=== PATIENT | female | born 2000 | race Caucasian/White ===

== ENCOUNTER 2022-08-17 08:39 | Emergency (ER) | payer OTHER, SELFPAY ==
[2022-08-17 08:41] VITALS: BP 154/108; PULSE 113; RESP 20; TEMP 36.7; O2SAT 97; BMI 43.4
--- NOTE | 2022-08-17 09:06 | EXP.UTC ---
Discharge Plan Disposition Patient Disposition: Home, Self-Care Condition: Good Prescriptions Prescriptions: New ondansetron 4 mg Tablet,Disintegrating 4 mg PO Q8H PRN (Reason: Nausea) Qty: 12 0RF No Action dextroamphetamine-amphetamine 20 mg tablet 20 mg PO DAILY escitalopram oxalate 20 mg tablet 20 mg PO DAILY Referrals Follow up/Referrals: Provider,Referral, MD [Primary Care Provider] - See instructions Activity Restrictions/Add. Instructions Additional Instructions/Restrictions: Drink plenty of fluids. Take tylenol for pain or fever. Take the zofran as directed for nausea. Follow up with your regular doctor. GO TO THE ER FOR ANY WORSENING SYMPTOMS Clinical Impressions Clinical Impression: Gastroenteritis Stand Alone Forms Stand Alone Forms: Work/School Release Instructions Patient Instructions: DI for Viral Gastroenteritis -- Adult, Ondansetron Discharge ED Provider: Ranulfo Turner [facility] [place] HPI General Stated complaint: vomiting, diarrhea, dizzy, weakness Mode of Arrival: Ambulatory Source of Information: Patient Limitations: No Limitations Time Seen by Provider: 08/17/22 09:06 Description of Symptoms (Recalled from Triage Doc. by RN): Pt reports vomiting and diarrhea that began approx 0130 this morning. Pt reports body aches and feels weak. History of Present Illness Provider Complaint: she reports that she has vomited multiple times and had diarrhea multiple times since 0130 am today. She denies abdominal pain. Related Data Home Medications Medication Instructions Recorded Confirmed dextroamphetamine-amphetamine 20 20 mg PO DAILY add 08/17/22 08/17/22 mg tablet escitalopram oxalate 20 mg tablet 20 mg PO DAILY Anxiety 08/17/22 08/17/22 Previous Rx's Medication Instructions Recorded ondansetron 4 mg disintegrating 4 mg PO Q8H PRN Nausea #12 tabs 08/17/22 tablet Allergies Allergy/AdvReac Type Severity Reaction Status Date / Time Penicillins Allergy Verified 08/17/22 09:03 [facility] Disclaimer: The information contained in this section may have been updated after the patient was seen, as this information can be updated by other users. Medical History ADD (attention deficit disorder) Anxiety Hypertension Migraine Surgical History Previous section Social History Smoking Status: Never smoker alcohol intake: current current occupational status: unemployed Travel in the last 8 weeks: None ROS Obtained: Yes All systems reviewed & no additional complaints except as documented Constitutional Constitutional: Denies chills, Denies fever(s) and Reports poor appetite ENT Ears, Nose, Mouth, and Throat: Denies dizziness and Denies sore throat Cardiovascular Cardiovascular: Denies dyspnea Respiratory Respiratory: Denies chest congestion, Denies cough and Denies dyspnea Gastrointestinal Gastrointestingal: Reports as per HPI; Denies abdominal pain Genitourinary Female Genitourinary: Denies difficulty voiding, Denies dysuria, Denies hematuria, Denies urinary frequency, Denies urinary incontinence, Denies urinary hesitancy and Denies urinary urgency Musculoskeletal Musculoskeletal: Denies arthralgias Integumentary/Breasts Skin/Breast: Denies rash Neurologic Neurologic: Denies dizziness Physical Exam General General appearance: alert and in no apparent distress Head Head exam: atraumatic and normocephalic Eye Eye exam: Present normal appearance, PERRL and EOMI ENT ENT exam: Present normal exam, normal oropharynx, mucous membranes moist, TM's normal bilaterally and normal external ear exam Neck Neck exam: Present normal inspection, full ROM and trachea midline; Absent tenderness, meningismus or lymphadenopathy Chest Chest inspection: Present normal inspection and symmetri
[2022-08-17 09:17] VITALS: BP 138/93; PULSE 118; RESP 16; TEMP 36.7; O2SAT 98; BMI 43.4
[2022-08-17 09:38] VITALS: BP 138/93; PULSE 110; RESP 16; TEMP 36.7; O2SAT 98
== END 2022-08-17 09:39 | disposition home or self-care (01) ==
PROVIDERS: Emergency Provider Nurse Practitioner Family
DX: K52.9 Noninfective gastroenteritis and colitis, unspecified (principal); R11.2 Nausea with vomiting, unspecified; I10 Essential (primary) hypertension; F41.9 Anxiety disorder, unspecified; F90.9 Attention-deficit hyperactivity disorder, unspecified type
CPT/HCPCS: 99204; 99212; G0463

== ENCOUNTER 2023-02-25 00:49 | Emergency (ER) | payer OTHER, SELFPAY ==
[2023-02-25 00:50] VITALS: BP 143/75; PULSE 97; RESP 18; TEMP 36.8; O2SAT 97; BMI 42.0
--- NOTE | 2023-02-25 02:04 | HMH.EDGENADL ---
Discharge Plan Disposition Patient Disposition: Home, Self-Care Condition: Good Prescriptions Prescriptions: New promethazine 12.5 mg tablet 12.5 mg PO TID PRN (Reason: nausea and vomiting) Qty: 14 0RF Rx Instructions: 3 doses during day; last dose no later than 4 hr before bedtime No Action dextroamphetamine-amphetamine 20 mg tablet 20 mg PO DAILY escitalopram oxalate 20 mg tablet 20 mg PO DAILY ondansetron 4 mg Tablet,Disintegrating 4 mg PO Q8H PRN (Reason: Nausea) Qty: 12 0RF Referrals Follow up/Referrals: Provider,Referral, MD [Primary Care Provider] - See instructions Clinical Impressions Clinical Impression: Gastroenteritis Instructions Patient Instructions: DI for Nausea -- Adult, DI for Morning Sickness, Nausea of (Alternative Therapy), Viral Gastroenteritis Discharge ED Provider: Sharnoda Oliver [facility] Adult HPI General Stated complaint: vomiting, diarrhea, dizziness Time Seen by Provider: 02/25/23 02:04 History of Present Illness HPI narrative: 22-year-old female with history of 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 Patient notes that her other children are having a GI bug.? Patient notes over the past 3 hours, she has been having nausea, vomiting, diarrhea with more than 4-5 episodes of both.? Patient has had all vomiting and diarrhea but nonbloody.? Patient notes over the past week, she has also been experiencing some lower abdominal cramping, but no vaginal bleeding, passage of tissue, abnormal discharge.? 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 Related Data Home Medications Medication Instructions Recorded Confirmed dextroamphetamine-amphetamine 20 20 mg PO DAILY add 08/17/22 08/17/22 mg tablet escitalopram oxalate 20 mg tablet 20 mg PO DAILY Anxiety 08/17/22 08/17/22 Previous Rx's Medication Instructions Recorded ondansetron 4 mg disintegrating 4 mg PO Q8H PRN Nausea #12 tabs 08/17/22 tablet promethazine 12.5 mg tablet 12.5 mg PO TID PRN nausea and 02/25/23 vomiting #14 tabs Allergies Allergy/AdvReac Type Severity Reaction Status Date / Time Penicillins Allergy Verified 08/17/22 09:03 [facility] Disclaimer: The information contained in this section may have been updated after the patient was seen, as this information can be updated by other users. Medical History ADD (attention deficit disorder) Anxiety Hypertension Migraine Surgical History Previous section Social History Smoking Status: Never smoker alcohol intake: current current occupational status: unemployed Travel in the last 8 weeks: None ROS Obtained: Yes All systems reviewed & no additional complaints except as documented Physical Exam General General appearance: alert and in no apparent distress Head Head exam: atraumatic, normocephalic and normal inspection Eye Eye exam: Present normal appearance, PERRL and EOMI; Absent scleral icterus or nystagmus ENT ENT exam: Present normal exam, mucous membranes moist and normal external ear exam Neck Neck exam: Present normal inspection, full ROM and trachea midline Chest Chest inspection: Present normal inspection and symmetric chest wall rise; Absent tenderness Respiratory Respiratory exam: Present normal lung sounds bilaterally; Absent respiratory distress, wheezes or accessory muscle use Cardiovascular Cardiovascular exam: Present regular rate, normal rhythm and normal heart sounds Abdominal Exam Abdominal exam: Present soft; Absent distention, tenderness, guarding, rebound, rigidity, trauma, ascites or pulsatile mass Extremities Exam
[2023-02-25 02:23] VITALS: BMI 42.0
[2023-02-25 02:30] LABS: Eosinophils % 0.8 % (0.1-12.0); Hematocrit 40.2 % (37.0-47.0); Hemoglobin 13.5 g/dL (12.2-16.2); Lymphocytes % 10.3 % (10-50); Mean Corpuscular HGB Conc 33.6 g/dL (31.8-35.4); Mean Corpuscular Hemoglobin 29.5 pg (27.0-31.2); Mean Corpuscular Volume 87.7 fl (81-99); Mean Platelet Volume 7.8 fl (7.4-10.4); Monocytes % 2.9 % (1.7-9.3); Neutrophils % 84.7 % (37.0-80.0); Platelet Count 385 K/mm3 (142-424); Red Blood Count 4.58 M/mm3 (4.20-5.40); Red Cell Distribution Width 12.9 % (11.5-17.5)
[2023-02-25 02:31] LABS: Basophils % 0.2 % (0.1-2.0); Eosinophils # 0.1 K/mm3 (0.0-0.4); Lymphocytes # 1.6 K/mm3 (0.7-4.5); Monocytes # 0.5 K/mm3 (0.1-1.0); Neutrophils # 13.5 K/mm3 (1.8-7.8)
[2023-02-25 02:32] LABS: MANUAL DIFFERENTIAL MANUAL DIFFERENTIAL (MANUAL DIFF)
[2023-02-25 02:33] LABS: HCG,Quantitative 5709 mIU/ml (0-5.42)
[2023-02-25 02:39] LABS: Alanine Aminotransferase 22 U/L (12-78); Albumin Level 4.6 g/dl (3.5-5.0); Albumin/Globulin Ratio 1.5 (1.1-1.8); Alkaline Phosphatase 84 U/L (38-126); Anion Gap 11.7 mEq/L (5-15); Aspartate Amino Transferase 23 U/L (14-36); Bilirubin,Total 0.4 mg/dl (0.2-1.3); Blood Urea Nitrogen 8 mg/dl (7-17); Calcium 8.8 mg/dl (8.4-10.2); Carbon Dioxide 20 mmol/L (22.0-30.0); Chloride 106 mmol/L (98-107); Creatinine Clearance Estimated 114 mL/min (50-200); Estimated Glomerular Filt Rate 123 ml/min (>60); GFR (African American) 149 ML/MIN (>60); Globulin 3.1 g/dL (1.3-3.2); Glucose 109 mg/dl (74-100); Lipase 37 U/L (23-300); Potassium 3.7 mmoL/L (3.5-5.1); Sodium 134 mmol/L (136-145); Total Protein,Serum 7.7 g/dl (6.3-8.2)
[2023-02-25 02:41] VITALS: BP 134/72; PULSE 81; RESP 18; TEMP 36.8; O2SAT 97
[2023-02-25 02:51] LABS: Appearance,Urine Clear (Clear); Bilirubin,Urine Negative (Negative); Blood, Urine 2+ (Negative); Color,Urine Yellow (Yellow); Glucose,Urine (UA) Negative (Negative); Ketones,Urine 1+ (Negative); Leukocyte Esterase,Urine Trace (Negative); Microscopic, Urine URINE MICROSCOPIC (MICROSCOPIC); Nitrate,Urine Negative (Negative); Protein,Urine Negative (Negative); Urobilinogen,Urine 0.2 EU/dl (0.2)
[2023-02-25 02:52] LABS: Bacteria,Urine 1+ /lpf
[2023-02-25 02:53] LABS: Lymphocytes % 14 % (10-50); Monocytes % 1 % (2-9); Neutrophils % 85 % (42-76); Platelet Estimate Normal; RBC Morphology Normal; Total Cells Counted 100
--- NOTE | 2023-02-28 16:12 | PC.NURSE ---
urine culture 25,000-50,000 colony, no further action, contaminated per
== END 2023-02-25 02:42 | disposition home or self-care (01) ==
PROVIDERS: Emergency Provider Emergency Medicine
DX: K52.9 Noninfective gastroenteritis and colitis, unspecified (principal); O99.611 Diseases of the digestive system complicating pregnancy, first trimester; O10.011 Pre-existing essential hypertension complicating pregnancy, first trimester; O99.341 Other mental disorders complicating pregnancy, first trimester; F41.9 Anxiety disorder, unspecified; Z3A.01 Less than 8 weeks gestation of pregnancy
CPT/HCPCS: 80053; 81001; 83690; 84702; 85007; 85025; 87086; 96361; 96374; 96375; 99285; J2405

== ENCOUNTER 2023-07-30 17:26 | Emergency (ER) | payer OTHER, SELFPAY ==
[2023-07-30] VITALS (13 sets, daily range): BP systolic 121–147; BP diastolic 73–110; PULSE 70–113; RESP 15–22; TEMP 36.7; O2SAT 97–100; BMI 41.5
--- NOTE | 2023-07-30 17:20 | ECG_ITS ---
APPROVED REPORT Exam: Resting ECG HR:104 bpm ECG Measurements Heart Rate 104 AXES WI 136 P 41 QRSd 81 QRS 66 QT 338 T 14 QTc 398 Conclusion SINUS TACHYCARDIA WITH FREQUENT VENTRICULAR PREMATURE COMPLEXES ABNORMAL RHYTHM ECG Electronically signed by : RAS LANG, 07/31/2023 00:27:33
--- NOTE | 2023-07-30 17:42 | XR_ITS ---
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 Views: 1 view. COMPARISON: No relevant prior studies available. FINDINGS: Lungs: Unremarkable. No consolidation. Pleural spaces: Unremarkable. No pleural effusion. No pneumothorax. Heart/Mediastinum: Unremarkable. No cardiomegaly. Bones/joints: Unremarkable. IMPRESSION: No acute findings.
--- NOTE | 2023-07-30 17:43 | ED_ITS ---
Discharge Plan Disposition Patient Disposition: Home, Self-Care Chief Complaint: Chest Pain Prescriptions Prescriptions: No Action promethazine 12.5 mg tablet 12.5 mg PO TID PRN (Reason: nausea and vomiting) Qty: 14 0RF Rx Instructions: 3 doses during day; last dose no later than 4 hr before bedtime dextroamphetamine-amphetamine 20 mg tablet 20 mg PO DAILY escitalopram oxalate 20 mg tablet 20 mg PO DAILY ondansetron 4 mg Tablet,Disintegrating 4 mg PO Q8H PRN (Reason: Nausea) Qty: 12 0RF Referrals Follow up/Referrals: Eliezer Michaels MD [Staff Physician] - See instructions Activity Restrictions/Add. Instructions Additional Instructions/Restrictions: At this time it was felt you are safe to be discharged home. If new or worsening symptoms please do not hesitate to return the emergency department. Please call and schedule an appointment with Dr. Michaels as you are able. Clinical Impressions Clinical Impression: Chest pain, Frequent PVCs Discharge ED Provider: Toni Draper [facility] General Chief Complaint: Chest Pain Stated Complaint: chest pain Time Seen by Provider: 07/30/23 17:26 Mode of Arrival: EMS Source of Information: Patient Limitations: No Limitations Description of Symptoms (Recalled from ER Triage Doc. by RN): Patient states that she began to have lower rib cage pain approx 30 minutes prior to arrival. States she spoke to her OB who stated she needed to come to the er for evaluation. History of Present Illness HPI narrative: Patient is a 23-year-old female G2, P2 EGA 28 weeks who presents emergency department for evaluation of chest pain. Onset was acute, 1 hour prior to arrival. Nonmodifiable, moderate to severe in intensity. No vaginal bleeding. Patient has history of preeclampsia in previous , has elevated blood pressure this which they are continuing to monitor. Patient's primary OB is in [place]. Related Data Home Medications Medication Instructions Recorded Confirmed dextroamphetamine-amphetamine 20 20 mg PO DAILY add 08/17/22 08/17/22 mg tablet escitalopram oxalate 20 mg tablet 20 mg PO DAILY Anxiety 08/17/22 08/17/22 Previous Rx's Medication Instructions Recorded ondansetron 4 mg disintegrating 4 mg PO Q8H PRN Nausea #12 tabs 08/17/22 tablet promethazine 12.5 mg tablet 12.5 mg PO TID PRN nausea and 02/25/23 vomiting #14 tabs Allergies Allergy/AdvReac Type Severity Reaction Status Date / Time Penicillins Allergy Verified 08/17/22 09:03 [facility] Disclaimer: The information contained in this section may have been updated after the patient was seen, as this information can be updated by other users. Medical History ADD (attention deficit disorder) Anxiety Hypertension Migraine Surgical History Previous section Social History Smoking Status: Never smoker alcohol intake: current current occupational status: unemployed Travel in the last 8 weeks: None ROS Obtained: Yes Systems reviewed as appropriate & no additional complaints except as documented Physical Exam General General appearance: alert and in no apparent distress Head Head exam: atraumatic and normocephalic Eye Eye exam: Present PERRL and EOMI ENT ENT exam: Present mucous membranes moist Neck Neck exam: Present normal inspection Chest Chest inspection: Present normal inspection and symmetric chest wall rise Respiratory Respiratory exam: Present normal lung sounds bilaterally; Absent respiratory distress Cardiovascular Cardiovascular exam: Present normal rhythm and tachycardia Abdominal Exam Abdominal exam: Present soft and other (Gravid); Absent tenderness Extremities Exam Extremities exam: Present normal inspection Neurological Exam Neurological exam: Present alert Psychiatric Psychiatric exam: Present normal affect Skin Skin exam: Present warm and dry HEART Score HEART Score HEART Score assessment performed?: Yes History (anamnesis): Moderately suspicious ECG: Non-specific disturbance Age: <45 years Risk factors: No known risk factors Troponin: </= normal limit HEART Score: 2 Critical Care Critical Care Time Critical Care Time: No Medical Decision Making Maury Inquiry Pt receiving controlled substance: No Vital Signs Vital Signs: 07/30/23 17:26 07/30/23 18:29 07/30/23 19:00 Temperature 98.0 F Temperature Source Oral Pulse Rate 103 H 98 H Pulse Rate [Radial] 70 Respiratory Rate 18 22 15 Blood Pressure 138/80 141/82 H Blood Pressure [Right Arm] 121/73 Blood Pressure Mean 98 Blood Pressure Mean [Right Arm] 89 Blood Pressure Source [Right Arm] Automatic Cuff Blood Pressure Position [Right Arm] Sitting 02 Sat by Pulse Oximetry 99 100 99 Oxygen Delivery Method Room Air 07/30/23 19:30 07/30/23 20:01 07/30/23 20:03 Temperature Temperature Source Pulse Rate Pulse Rate [Radial] Respiratory Rate Blood Pressure 147/82 H 144/110 H 145/83 H Blood Pressure [Right Arm] Blood Pressure Mean 97 115 103 Blood Pressure Mean [Right Arm] Blood Pressure Source [Right Arm] Blood Pressure Position [Right Arm] 02 Sat by Pulse Oximetry Oxygen Delivery Method 07/30/23 20:28 Temperature Temperature Source Pulse Rate 113 H Pulse Rate [Radial] Respiratory Rate 17 Blood Pressure 144/89 H Blood Pressure [Right Arm] Blood Pressure Mean Blood Pressure Mean [Right Arm] Blood Pressure Source [Right Arm] Blood Pressure Position [Right Arm] 02 Sat by Pulse Oximetry 97 Oxygen Delivery Method Lab Data Labs: Lab Results 07/30/23 18:05: WBC 16.9 H, RBC 4.08 L, Hgb 12.2, Hct 37.0, MCV 90.5, MCH 30.0, MCHC 33.1, RDW 13.5, Plt Count 299, MPV 9.0, Neut % (Auto) 85.6 H, Lymph % (Auto) 10.7, Charles % (Auto) 3.2, Eos % (Auto) 0.3, Baso % (Auto) 0.2, Neut # (Auto) 14.4 H, Lymph # (Auto) 1.8, Charles # (Auto) 0.5, Eos # (Auto) 0.1, Baso # (Auto) 0.0, Total Counted 100, Neutrophils % (Manual) 84 H, Lymphocytes % (Manual) 14, Monocytes % (Manual) 1 L, Basophils % (Manual) 1.0, Platelet Estimate Normal, RBC Morphology Normal, D-Dimer 0.90 H, Sodium 133 L, Potassium 3.7, Chloride 109 H, Carbon Dioxide 18 L, Anion Gap 9.7, BUN 5 L, Creatinine 0.30 L, Estimated Creat Clear 216, Estimated GFR 271, Est GFR ( Amer) 328, Glucose 98, Calcium 8.8, Total Bilirubin 0.6, AST 64 H, ALT 41, Alkaline Phosphatase 146 H, Troponin I < 0.01, Total Protein 6.4, Albumin 3.5, Globulin 2.9, Albumin/Globulin Ratio 1.2 07/30/23 18:27: Urine Color Yellow, Urine Appearance Clear, Urine pH 6.0, Ur Specific Matthews 1.020, Urine Protein Negative, Urine Glucose (UA) Negative, Urine Ketones Negative, Urine Blood Negative, Urine Nitrate Negative, Urine Bilirubin Negative, Urine Urobilinogen 1.0, Ur Leukocyte Esterase 1+ A, Urine RBC None, Urine WBC 3-5, Ur Squamous Epith Cells 5-10, Urine Bacteria 1+, Urine Creatinine 77, Urine Total Protein 8.0 07/30/23 20:45: Troponin I < 0.01 07/30/23 18:05 07/30/23 18:05 Response Orders (Tests/Meds): ED MEDICATIONS Discontinued Medications Generic Name Dose Route Start Last Admin Trade Name Freq PRN Reason Stop Dose Admin Acetaminophen 1,000 mg 07/30/23 17:41 07/30/23 17:50 Acetaminophen 500mg Tab PO 07/30/23 17:42 1,000 mg ONCE ONE Administration Lactated Ringer's 1,000 mls @ 999 mls/hr 07/30/23 17:42 07/30/23 17:51 Lactated Ringer's 1000 Ml Bag IV 07/30/23 18:42 999 mls/hr .Q1H1M ONE Administration ORDERS Category Date Time Status CXR --portable [XR chest portable] Stat Exams 07/30/23 17:42 Completed POCUS Point of Care (ER Only) Stat Exams 07/30/23 17:47 Taken CBC w/Auto Diff [Complete Blood Count Auto Diff] Stat Lab 07/30/23 18:05 Completed CMP [Comprehensive Metabolic Panel] Stat Lab 07/30/23 18:05 Completed Creatinine,Urine Random Stat Lab 07/30/23 18:27 Completed D-Dimer Stat Lab 07/30/23 18:05 Completed Total Protein,Urine Random Stat Lab 07/30/23 18:27 Completed Trop I [Troponin I] Stat Lab 07/30/23 18:05 Completed Troponin I Q3H Lab 07/30/23 20:45 Completed Troponin I Q3H Lab 07/30/23 23:45 Ordered UA [Urinalysis and Microscopic] Stat Lab 07/30/23 18:27 Completed Urine Culture Stat Micro 07/30/23 18:27 Received ECG Data Tracing #1: ECG Narrative: Independently interpreted by me, rate is 104, rhythm is regular, axis is normal, no ST elevation in anatomical contiguous leads, QTc 398. MDM Narrative Medical Decision Narrative: In summary patient is a 23-year-old female past medical history described above who presents emergency department for evaluation of chest pain in setting of . Patient is hemodynamically stable nontoxic-appearing upon arrival, afebrile, tachycardic although initially was not tachycardic. heart rate 144. Differential diagnosis includes ACS, noncardiac chest pain, pulmonary embolism, among others. Workup will be conducted with hematologic labs, chest x-ray, EKG, troponins. Initial interventions include Tylenol. Initial workup reviewed by me, nonspecific leukocytosis of 16.9, no critical electrolyte abnormality or DEL. D-dimer 0.9, no years criteria and D-dimer less than 1 effectively rules out pulmonary embolism. Initial troponin undetectably low, urinalysis does not have proteinuria, there is bacteria. Chest x-ray informally interpreted by me, no acute lobar opacities or large pneumothorax. Formal read shows no acute pathology. Serial troponins undetectably low. Upon repeat evaluation patient continued to be well-appearing. She is prescribed an antacid which is unknown the exact brand and whether she should take it daily or only when symptoms occur. She was encouraged to further delve into this to see if this is acid reflux and she is just not compliant with the PPI. However she does have frequent PVCs on the monitor, no tacky dysrhythmias under my care therefore patient is appropriate for outpatient management at this time will be referred to Dr. Michaels.
[2023-07-30] MEDS: ACETAMINOPHEN 500MG TAB 1000 MG PO (17:50)
[2023-07-30] MEDS: LACTATED RINGERS 1000ML 1,000 ML 999 ML IV (17:51)
--- NOTE | 2023-07-30 17:53 | PC.NURSE ---
FHT's dopplered at the bedside at 144bpm
[2023-07-30 18:18] LABS: Basophils % 0.2 % (0.1-2.0); Eosinophils # 0.1 K/mm3 (0.0-0.4); Eosinophils % 0.3 % (0.1-12.0); Hemoglobin 12.2 g/dL (12.2-16.2); Lymphocytes # 1.8 K/mm3 (0.7-4.5); Lymphocytes % 10.7 % (10-50); Mean Corpuscular HGB Conc 33.1 g/dL (31.8-35.4); Mean Corpuscular Volume 90.5 fl (81-99); Monocytes # 0.5 K/mm3 (0.1-1.0); Monocytes % 3.2 % (1.7-9.3); Neutrophils # 14.4 K/mm3 (1.8-7.8); Neutrophils % 85.6 % (37.0-80.0); Platelet Count 299 K/mm3 (142-424); Red Blood Count 4.08 M/mm3 (4.20-5.40); Red Cell Distribution Width 13.5 % (11.5-17.5); White Blood Count 16.9 K/mm3 (4.8-10.8)
[2023-07-30 18:20] LABS: MANUAL DIFFERENTIAL MANUAL DIFFERENTIAL (MANUAL DIFF)
[2023-07-30 18:25] LABS: Chloride 109 mmol/L (98-107)
[2023-07-30 18:26] LABS: Potassium 3.7 mmoL/L (3.5-5.1); Sodium 133 mmol/L (136-145)
[2023-07-30 18:28] LABS: Alanine Aminotransferase 41 U/L (12-78); Alkaline Phosphatase 146 U/L (38-126); Anion Gap 9.7 mEq/L (5-15); Aspartate Amino Transferase 64 U/L (14-36); Bilirubin,Total 0.6 mg/dl (0.2-1.3); Blood Urea Nitrogen 5 mg/dl (7-17); Carbon Dioxide 18 mmol/L (22.0-30.0); Creatinine Clearance Estimated 216 mL/min (50-200); Estimated Glomerular Filt Rate 271 ml/min (>60); GFR (African American) 328 ML/MIN (>60)
[2023-07-30 18:29] LABS: Albumin Level 3.5 g/dl (3.5-5.0); Albumin/Globulin Ratio 1.2 (1.1-1.8); Calcium 8.8 mg/dl (8.4-10.2); Globulin 2.9 g/dL (1.3-3.2); Glucose 98 mg/dl (74-100); Total Protein,Serum 6.4 g/dl (6.3-8.2)
[2023-07-30 18:34] LABS: Microscopic, Urine URINE MICROSCOPIC (MICROSCOPIC)
[2023-07-30 18:35] LABS: Appearance,Urine CLEAR (Clear); Bilirubin,Urine Negative (Negative); Blood, Urine Negative (Negative); Color,Urine YELLOW (Yellow); Glucose,Urine (UA) Negative (Negative); Ketones,Urine Negative (Negative); Leukocyte Esterase,Urine 1+ (Negative); Nitrate,Urine Negative (Negative); Protein,Urine Negative (Negative)
[2023-07-30 18:43] LABS: Troponin I < 0.01 ng/ml (0.00-0.034)
[2023-07-30 18:43] LABS: Creatinine,Urine Random 77 mg/dL (Not Estab.)
[2023-07-30 18:45] LABS: Bacteria,Urine 1+ /lpf
[2023-07-30 18:57] LABS: Lymphocytes % 14 % (10-50); Monocytes % 1 % (2-9); Neutrophils % 84 % (42-76); Platelet Estimate Normal; RBC Morphology Normal; Total Cells Counted 100
--- NOTE | 2023-07-30 19:50 | PC.NURSE ---
Addendum entered by Lalitha Muro RN 07/30/23 19:50: pt voices no needs and states her chest pain has improved. Original Note: rounded on pt at this time
[2023-07-30 21:29] LABS: Troponin I < 0.01 ng/ml (0.00-0.034)
== END 2023-07-30 22:13 | disposition home or self-care (01) ==
PROVIDERS: Emergency Provider Emergency Medicine
DX: O26.893 Other specified pregnancy related conditions, third trimester (principal); R07.89 Other chest pain; I49.3 Ventricular premature depolarization; Z3A.28 28 weeks gestation of pregnancy; O23.43 Unspecified infection of urinary tract in pregnancy, third trimester; R82.71 Bacteriuria; B96.89 Other specified bacterial agents as the cause of diseases classified elsewhere; R00.0 Tachycardia, unspecified; E87.1 Hypo-osmolality and hyponatremia; D72.829 Elevated white blood cell count, unspecified
CPT/HCPCS: 36415; 71045; 80053; 81001; 82570; 84156; 84484; 85007; 85025; 85378; 87086; 93005; 96360; 99285